=== PATIENT | female | born 1960 | race Caucasian/White ===

== ENCOUNTER 2018-12-20 18:49 | Emergency (ER) | payer OTHER, SELFPAY ==
[2018-12-20 18:50] VITALS: BP 122/73; PULSE 117; RESP 18; TEMP 36.2; O2SAT 96; BMI 37.4
--- NOTE | 2018-12-20 19:20 | ED.DCSUM_ITS ---
- ER Visit Summary Date of Service: 12/20/18 Chief Complaint: [Vomiting and diarrhea] History of Present Illness: The patient is a 58 F [presents to the emergency department with vomiting and diarrhea started 24 hours ago. Patient initially started with vomiting and now she is just having dry heaves. Patient thrown up at least 8 or 9 times today. Patient's not been able to eat. Patient states the diarrhea just started today and has had about 4 watery stools. She denies any blood in her stool or emesis. Patient denies recent travel or antibiotic usage. Patient does state that she has had 2 coworkers with similar symptoms. She describes intermittent abdominal cramping. She has not had any fever. She denies eating any undercooked foods.] Physical Examination: [HEENT-PERRLA, EOMI. Cranial nerves II through XII grossly intact. TMs clear. Mucous membranes moist. No adenopathy. Cardiovascular-regular rate and rhythm without murmur or ectopy Lungs-clear to auscultation, chest wall stable without crepitus or subcu emphysema Abdomen-hyperactive bowel sounds, soft, nontender, no rebound or rigidity, no peritoneal signs. Extremities-intact ?4, normal range of motion, normal pulses, atraumatic] Test Results: [CBC with differential obtained was unremarkable. Chemistry showed a potassium 3.0 otherwise unremarkable. Glucose was 190. Enteric pathogens ordered.] Emergency Department Course and Treatment: [Patient was given a liter of saline bolus followed by a second liter. Patient was medicated with Zofran 4 mg IV as well as Imodium 2 tablets p.o. patient felt significantly improved and she was able to tolerate a p.o. challenge.] Treatment Plan: [Patient will be given a prescription for Zofran and advised to use Imodium as needed for diarrhea. Patient advised to follow-up with her primary care physician within next 3 to 5 days. Patient advised to push fluids.] Disposition: [Discharged home in stable condition] Impression: [Viral gastroenteritis] This note was generated with [employer] dictation software. It may contain incorrect words, spelling, and punctuation that were not noted in review of the chart prior to signing ED Disposition - Plan for ED Patient: Referrals: Cesar Hutchins MD [Primary Care Provider] -
[2018-12-20] MEDS: Ondansetron 4 MG/2 ML Vial IV ×2 (19:46→21:52)
[2018-12-20] MEDS: 0.9% Normal Saline 1,000 ML 1000 ML IV (19:46)
[2018-12-20] MEDS: Loperamide 2 MG Capsule 4 MG PO (19:46)
[2018-12-20 20:08] LABS: Absolute Lymphocyte Count 0.67 X10^3/ul (0.83-4.51); Absolute Neutrophil Count 8.9 X10^3/uL (2.0-7.7); Basophil# 0.01 X10^3/uL; Basophil% 0.1 % (0-1); Eosinophil# 0.05 X10^3/uL; Eosinophils% 0.5 % (0-5); Hematocrit 44.4 % (37-47); Hemoglobin 15.5 g/dl (12.0-15.0); Lymphocyte # 0.67 X10^3/ul (4.0); Lymphocyte % 6.7 % (19-41); Mean Corp Hgb Conc 34.9 g/gl (32-36); Mean Corpuscular Hgb 31.4 pg (27.0-32.0); Mean Corpuscular Volume 90.1 fL (81-99); Mean Platelet Vol. 9.6 fl (6.2-12.0); Monocyte# 0.33 X10^3/uL; Monocyte% 3.3 % (0-10); Neutrophil # 8.86 X10^3/uL (2.7-7.7); Neutrophil % 89.2 % (47-70); Platelet Count 323 K/mm3 (150-450); RBC Distribution Width CV 13.6 % (11.6-14.6); RBC Distribution Width SD 44.1 fl (35.1-43.9); Red Blood Count 4.93 M/mm3 (4.2-5.4); White Blood Count 9.9 K/mm3 (4.4-11.0)
[2018-12-20 20:09] LABS: POSITIVE COUNT NO; POSITIVE DIFFERENTIAL NO; POSITIVE MORPHOLOGY NO
[2018-12-20 20:12] LABS: Anion Gap 8 (5-15); BUN 15 mg/dL (7-18); BUN/Creat Ratio 19.1 RATIO (10-20); Calcium,Total 8.9 mg/dL (8.5-10.1); Chloride 106 mmol/L (98-107); Creatinine, Serum 0.78 mg/dL (0.55-1.02); EST Glomerular Filtration Rate 80 mL/min (>60); Est Glom Filt Rate - Afr Amer 97 mL/min (>60); Estimated Creatinine Clearance 60.05 ml/min; Glucose 190 mg/dL (74-106); Sodium Level 142 mmol/L (136-145)
[2018-12-20] MEDS: Dicyclomine 20 MG/2 ML Vial IM (20:15)
--- NOTE | 2018-12-20 20:31 | ED.DEP ---
ED Disposition - Plan for ED Patient: Instructions: GASTROENTERITIS, Viral (7y-Adult) Prescriptions: Ondansetron [Zofran Odt] 4 mg PO Q8H PRN PRN #10 tab PRN Reason: Nausea Prescription Printed Referrals: Cesar Hutchins MD [Primary Care Provider] - 3-5 Days
[2018-12-20] MEDS: 0.9% Normal Saline 1,000 ML 999 ML IV (20:34)
[2018-12-20 20:49] VITALS: BP 108/61; PULSE 74; RESP 19; O2SAT 95
[2018-12-20] MEDS: Acetaminophen 325 MG Tablet 650 MG PO (21:43)
[2018-12-20 22:40] LABS: Bedside Glucose 106 mg/dL (70-110)
[2018-12-20 22:44] VITALS: BP 112/64; PULSE 76; RESP 18; O2SAT 97
== END 2018-12-20 22:46 | disposition home or self-care (01) ==
PROVIDERS: Emergency Provider Emergency Medicine
DX: A08.4 Viral intestinal infection, unspecified (principal); E11.9 Type 2 diabetes mellitus without complications; Z72.0 Tobacco use; Z79.84 Long term (current) use of oral hypoglycemic drugs
CPT/HCPCS: 80048; 82962; 85025; 96361; 96372; 96374; 96376; 99285; J7030; A4216; J2405

== ENCOUNTER 2019-08-04 08:00 | Outpatient (RCR) | payer BC, SELFPAY ==
--- NOTE | 2019-07-08 09:08 | HP.PTEVAL ---
Patient's Visit Information WAYNE LOYA is a 59 year old F referred to Physical Therapy by COLIN ANDREW with a diagnosis of B Greater Trochanteric Hip Bursitis. Date of Evaluation: 07/08/19 Physical Therapist: Marcelo Brown, PT, ATC - Visit Plan Frequency: 2x /Week Duration: 6 Weeks Plan: B LE stretching and strengthening, core stab ex's, DTR, foam roller, nustep, and HEP - Subjective Findings: Pt reports her hips have been sore for 6-8 mos. Pt reports she was performing PT for her LBP which may have provoked her pain. Pt reports she has had 2 LB surgeries in the past. 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 Pt reports she is on light duty at this time secondary to her LB surgeries. 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 Pt reports she has altered sensations in her R LE along the anterior thigh region. Pt reports it is difficult for her to get comfortable for sleeping secondary to pain. Pt has had xrays on her her hips which revealed bursitis. 6/10 pain at rest, 8/10 pain at worst (when she starts walking). Pt notes prolonged sitting and walking both increase her pain. - Pain B hips Pain Intensity (Out of 10): 6 Pain Intensity Range: 8 - Objective Neuro: R LE L3-4 dermatone is hyposensitive to light touch. All other B LE sensation is WNL to light touch. B patellar reflex= 1/3. Palpation: Pt is very sore on B greater trochanteric bursa's. No obvious deformity present. ROM: R hip flexion and abduction are minimally limited. All other ranges of motion are WNL. MMT: B LE's are grossly 4/5. Flexibility: Pt is moderately limited with piriformis and IT bands Bilat. - Goals Goal 1:: Decrease B hip pain x 50% to aid with sleep Goal Time Frame: 4-6 Weeks Goal 2:: Increase B LE flexibility x 1 grade to aid with decreasing pain Goal Time Frame: 4-6 Weeks Goal 3:: Increase B LE strength x 1 grade to aid with increasing tolerance for ambulation Goal Time Frame: 4-6 Weeks Goal 4:: I with HEP Goal Time Frame: 4-6 Weeks - Rehabilitation Potential Physical Therapy Diagnosis: Pt has B hip pain, weakness, and limited mobility in hips secondary to B hip greater trochanteric bursitis Rehabilitation Potential: Good - Anticipated Interventions Patient/Client Instruction: Educate patient on: Condition, Plan of Care For the Purpose of:: To improve self management Therapeutic Exercise to Include: Strength training, Endurance training, Flexibilty training, Passive ROM, Active ROM, Dynamic Lumbar Stabilization For the Purpose of:: To decrease pain, To increase ROM, To improve muscle performance and motor function Cryotherapy (ice pack, ice massage): Yes For the Purpose of:: To decrease pain Thank you for the opportunity to evaluate your patient. For Medicare and Medicare HMO plans, please review the plan of care and approve it. It will need to be FAXED BACK to us at [phone] for Medicare purposes. For Medicare only, by signing this I certify the plan of care. Please let me know if there are questions or concerns regarding this plan of care. Physician Signature: Date:
--- NOTE | 2019-09-24 17:36 | HP.PT.NRP ---
WAYNE LOYA was seen in my office for initial evaluation on 07/08/19. The following Plan of Care was established for this patient: Initial Frequency: 2x /Week Initial Duration: 6 Weeks Patient/Client Instruction: Educate patient on: Condition, Plan of Care For the Purpose of:: To improve self management Therapeutic Exercise to Include: Strength training, Endurance training, Flexibilty training, Passive ROM, Active ROM, Dynamic Lumbar Stabilization For the Purpose of:: To decrease pain, To increase ROM, To improve muscle performance and motor function Cryotherapy (ice pack, ice massage): Yes For the Purpose of:: To decrease pain This patient was last seen in our office . Pertinent comments regarding their Physical therapy will appear below: Pt was treated for 5 PT visits for B hip pain through the date of 08/04/2019. Pt has not returned through todays date and is discontinued at this time. At this point I will be discontinuing this patient from physical therapy. I would be happy to see this patient again in the future if found appropriate by the physician. Thank you! Marcelo Brown, PT, ATC
== END 2019-08-04 19:00 | disposition home or self-care (01) ==
LOC: PT 08:00
DX: M70.61 Trochanteric bursitis, right hip (principal); M70.62 Trochanteric bursitis, left hip; Z98.1 Arthrodesis status
CPT/HCPCS: 97110; 97161

== ENCOUNTER → 2019-09-08 | Outpatient (CLI) | payer BC, SELFPAY ==
[2019-09-08 17:49] LABS: CRP 4.12 mg/L (0.0-3.0)
[2019-09-10 16:07] LABS: Endomysial Antibody IgA Negative (Negative)
[2019-09-10 16:41] LABS: Immunoglobulin A 144 mg/dL (87-352); t-Transglutaminase IgA <2 U/mL (0-3)
== END | disposition home or self-care (01) ==
LOC: MTLAB 15:30
PROVIDERS: Referring Provider Internal Medicine Gastroenterology; Visit Provider Internal Medicine Gastroenterology
DX: R19.7 Diarrhea, unspecified (principal)
CPT/HCPCS: 36415; 82784; 83516; 86140; 86255

== ENCOUNTER → 2021-02-16 | Outpatient (CLI) | payer OTHER, SELFPAY ==
--- NOTE | 2021-02-16 | MUC_PTH ---
PATIENT: WAYNE LOYA LOC: [facility] U#:[id number] AGE/SX: 60/F ROOM: RE02/16/[address]: Dr. Reji Peralta MD : 1960 BED: DIS: 02/16/2021 SPEC #: [id number] RECD: 02/16/21 17:29 STATUS: YOLANDE REJessica #: [id number] ALEXANDER: 02/16/21 00:[address]: Reji Peralta DEPT: SURGICAL PATHOLOGY RECD BY: Stephy Siddiqui ENTERED: 02/17/21 07:56 SP TYPE: MUCOCELE OTHR DR: Dr. Cesar Hutchins MD Tissues: MUCOCELE OF SALIVARY GLAND Procedures: Surgery Specimen Level III HEADER OPERATION: Not noted PRE-OP DIAGNOSIS: Mucocele left tonsil TISSUE SUBMITTED: Left tonsil mucocele MICROSCOPIC DIAGNOSIS Material from mucocele left tonsil (cell block): Negative for malignant cells. See comment. AM:kirti 02/20/2021 COMMENT The specimen contains scant benign epithelial cells, proteinaceous debris and bacterial organisms. MICROSCOPIC DESCRIPTION Slides are reviewed. GROSS DESCRIPTION Received in fixative is one container labeled with the patient's name and designated left tonsil mucocele. The specimen consists of a scant amount of soft tissue. The specimen is totally submitted for cell block preparation. / SJ:kirti 02/17/21 TC:5 CPT: 28618
== END | disposition home or self-care (01) ==
PROVIDERS: Visit Provider Otolaryngology
DX: K13.79 Other lesions of oral mucosa (principal)
CPT/HCPCS: 88304

== ENCOUNTER 2023-01-05 22:24 | Emergency (ER) | payer OTHER, MEDICAID, SELFPAY ==
[2023-01-05 22:25] VITALS: BP 124/60; PULSE 82; RESP 16; TEMP 36.6; O2SAT 94; BMI 35.5
--- NOTE | 2023-01-05 22:31 | EDS_ITS ---
HPI History of Present Illness Chief Complaint: Back [facility] Medical History (Updated 01/06/23 @ 00:[address] Bennie Louis, DO) Anxiety Cholecystectomy planned Diabetes Hypertension PTSD (post-traumatic stress disorder) Home Medications paroxetine HCl 40 mg tablet (Paxil) 60 mg PO DAILY 05/24/13 [History Last Taken 12/20/18] propranolol 80 mg tablet 80 mg PO DAILY 05/24/13 [History Last Taken 12/20/18] hydrocodone-acetaminophen 5-325mg 5mg-325mg 1 tab PO Q6H PRN PRN Pain ##10 08/31/14 [Rx Last Taken Unknown] ondansetron 4 mg disintegrating tablet 4 mg PO Q8H PRN PRN Nausea #10 tabs 12/20/18 [Rx Last Taken Unknown] buspirone 7.5 mg tablet 7.5 mg PO BID 03/26/22 [History Last Taken Unknown] hydrochlorothiazide 25 mg tablet 25 mg PO DAILY 03/26/22 [History Last Taken Unknown] metformin 500 mg tablet,extended release 24 hr 1,000 mg (2 x 500 mg) PO BID #360 tabs 03/26/22 [Rx Last Taken Unknown] glimepiride 2 mg tablet 2 mg PO BID #60 tabs 12/24/22 [Rx Last Taken Unknown] Allergy/AdvReac Type Severity Reaction Status Date / Time morphine Allergy Itching Verified 01/05/23 22:30 [id number]-HlT Reductase Allergy Itching Verified 01/05/23 22:30 Inhibitor Family History Other Alcohol abuse Anxiety Arthritis CVA (cerebral vascular accident) Depression Diabetes Hypertension Surgical History H/O total hysterectomy History of carpal tunnel surgery Previous back surgery Social History Smoking Status: Current every day smoker tobacco type: cigarettes alcohol intake: current alcohol intake frequency: 0-2 drinks per day substance use type: does not use what type of physical activity do you participate in: walking EXAM Physical Exam Const Vital Signs: 01/05/23 22:25 Temperature 97.8 F Temperature Source Temporal Pulse Rate 82 Respiratory Rate 16 Blood Pressure 124/60 H Blood Pressure Mean 81 Pulse Ox 94 Oxygen Delivery Method Room Air [facility] Narrative Medical decision making narrative: HISTORY OF PRESENT ILLNESS: 62-year-old female presents with back pain. Patient notes that began after a coughing fit this evening. She states she has had no urinary frequency urgency or blood in her urine. Denies any flank pain. Denies any abdominal pain. Patient denies any saddle anesthesia, urinary tension, bowel or bladder incontinence, lower extremity weakness, fever or IV drug use, no recent spinal manipulation or surgery, no recent urinary catheterization. REVIEW OF SYSTEMS: All other systems reviewed and are negative except as noted in the history of present illness. At least 10 review of systems reviewed and are negative except as noted in history of present illness. PHYSICAL EXAM: Nursing triage notes reviewed, Vital signs reviewed Constitutional: please see mdm HENT: MMM Eyes: Pupils equal round and reactive to light, Extraocular muscles intact Neck: No stridor, no JVD, full neck ROM Lungs: Clear to auscultation, No wheezing or rales. No increased work of breathing, no conversational dyspnea, no accessory muscle use, no nasal flaring. No respiratory distress noted Heart: Regular rate and rhythm, No murmurs, No rubs and No gallops, 2+ distal pulses (radial, femoral, posterior tibial) in all extremities Abdomen: Soft, there is no tenderness, rigidity, rebound or guarding, no obvious peritoneal signs, no palpable pulsatile abdominal masses, no auscultated abdominal bruit : No CVAT Extremities: No edema Back: No midline step-offs or deformities, TTP over right gluteal region Neuro: Intact sensation L1-S1 dermatomal distributions. Intact 5/5 strength in hip flexion (T12-L3). Knee extension (L2-L4). Ankle dorsiflexion (L4-L5). Ankle plantar flexion (S1). Great toe extension (L5). 2+ patellar and Achilles DTRs. Skin: No rash or lesions noted MEDICAL DECISION MAKING: Chief Complaint: Back pain External records reviewed: No recent advanced imaging of the back Factors affecting care: History of type 2 diabetes, hypertension, chronic back pain Social determinants of health: No IV drug use History obtained from others: none Consults: none ALL IMAGES (IF OBTAINED) HAVE BEEN PERSONALLY REVIEWED AND INTERPRETED BY MYSELF. [facility] Narrative: Patient was hemodynamically stable, afebrile, nontoxic-appearing. There is no history of trauma. No midline step-offs deformities. No focal neurologic deficits. Patient was treated with Valium for muscle laxation and Decadron for anti-inflammatory effect. She was discharged with a prednisone and instructions to take Tylenol and ibuprofen as well as her already prescribed tramadol I considered the following differential diagnosis: Musculoskeletal back pain, space-occupying lesion of the spinal (epidural abscess, epidural hematoma), caud a equina, conus medullaris, fracture dislocation, AAA, nephrolithiasis, pyelonephritis, aortic dissection The patient presented complaining of back pain. There was no history of recent fall or trauma. There was no evidence to support genitourinary etiology. There is also no evidence to suggest vascular pathology such as AAA dissection. No fevers or other evidence to suspect infectious processes, abscess, osteomyelitis etc. The patient?s neurological exam is normal with normal motor and sensory. There is no saddle paresthesias reported and no bowel or bladder incontinence or retention. I suspect the pain is mechanical in nature. Clinical suspicion, plan of care and management was discussed with the patient. The patient was instructed to follow up with their health care provider. The patient was also instructed to return if the pain worsened, changed, or developed weakness or bowel or bladder trouble. The patient agreed with plan. I completed a structured, evidence-based clinical evaluation to screen for acute non-traumatic spinal emergencies. The patient has a normal detailed neurologic exam and red flag historical factors were negative. The evidence indicates that the patient is very low risk for an acute spinal emergency and this is consistent with my clinical intuition. The risk of further workup is higher than the likelihood of the patient having a spinal epidural abscess or other dangerous emergency spinal condition. It is, therefore, in the patient?s best interest not to do additional emergent testing at this time. Shared Decision-Making I have discussed with the patient my clinical impression and the result of an evidence-based clinical evaluation to screen for spinal epidural abscess and other spinal emergencies, as well as the risk of further testing and hospitalization. The evidence shows that the risk for an acute spinal emergency is less than 1%. Although the risk of an acute spinal emergency has not been completely eliminated, the risks of further testing likely exceed any potential benefit, and the patient agrees with not pursuing further emergent evaluation for causes of back pain at this time. The patient and/or family, caregivers express understanding. The patient and/or family, caregivers agrees with the plan. Total critical care time today provided was at least 0 minutes. This excludes separately billable procedures. Critical care time (if documented) is secondary to the patient having high probability of clinically significant/life threatening deterioration in the patient's condition which required my urgent intervention. Bennie Louis DO Discharge Plan Triage Chief Complaint: Back ED Provider: Bennie Louis Dx/Rx/DC Orders Clinical Impression: Back pain Instructions: ED Back Spasm, No Trauma Prescriptions: No Action buspirone 7.5 mg tablet 7.5 mg PO BID hydrochlorothiazide 25 mg tablet 25 mg PO DAILY metformin 500 mg tablet extended release 24 hr 1,000 mg PO BID Qty: 360 1RF propranolol 80 MG tablet 80 mg PO DAILY paroxetine HCl [Paxil] 40 MG tablet 60 mg PO DAILY hydrocodone-acetaminophen 1 TABLET tablet 1 tab PO Q6H PRN PRN (Reason: Pain) Qty: 10 0RF ondansetron 4 MG tablet 4 mg PO Q8H PRN PRN (Reason: Nausea) Qty: 10 0RF glimepiride 2 mg tablet 2 mg PO BID Qty: 60 0RF Primary Care Provider: [facility] ,Out of Referrals: Jorge Lal DO [Med Staff - Active Staff] - Activity Restrictions/Additional Instructions: Thank you for trusting us with your care today! Please take Tylenol (2 pills, 650 mg), ibuprofen (2 pills, 400 mg) every 6 hours as needed for pain and fever control. Please take prednisone daily for next 5 days. Please take Percocet as needed for breakthrough pain if the above pain regimen does not control your symptoms. Please return to the emergency department if your symptoms change or worsen. Specifically if develop bowel or bladder incontinence, urinary retention, inability to move your legs inability feel your legs. Please follow with orthopedic surgery (Dr. Vann) for further outpatient evaluation and management. Disposition Disposition: Home, Self Care
[2023-01-05] MEDS: dexAMETHasone 10 MG/ML Vial 6 MG IV (23:15)
[2023-01-05] MEDS: diazePAM 2 MG Tablet PO (23:16)
[2023-01-06 00:25] VITALS: BP 107/91; PULSE 70; RESP 18; O2SAT 98
== END 2023-01-06 00:27 | disposition home or self-care (01) ==
PROVIDERS: Emergency Provider Emergency Medicine; Visit Provider Emergency Medicine
DX: M54.9 Dorsalgia, unspecified (principal); E11.9 Type 2 diabetes mellitus without complications; I10 Essential (primary) hypertension; F17.210 Nicotine dependence, cigarettes, uncomplicated; G89.29 Other chronic pain
CPT/HCPCS: 96374; 99285; A4216